=== PATIENT | female | born 1970 | race Caucasian/White ===

== ENCOUNTER → 2018-03-18 | Outpatient (CLI) | payer OTHER ==
--- NOTE | 2018-03-18 13:02 | US ---
EXAMINATION TYPE: US thyroid st tissue head/neck DATE OF EXAM: 03/18/2018 COMPARISON: EXAMINATION TYPE: US soft tissue head/neck DATE OF EXAM: 03/18/2018 COMPARISON: NONE CLINICAL HISTORY: R59.0 ENLARGED LYMPH NODES. Patient stated was bitten by dog tick 3 weeks ago and h as palpable areas: 2 at posterior and lateral head in hair and another at inferior right lateral neck . Right posterior and lateral head and neck US at palpables: Two hypoechoic nodules are seen at palpabl es within posterior hair area with larger lymph node palpable = 1.0 x 1.0 x 0.6cm. Right lateral neck at palpable: Couple of hypoechoic lymph node appearing nodules are also seen with larger node = 1.4 x 0.9 x 0.5cm. Technologist harvey 2 oval well-defined hypoechoic lesions felt to reflect prominent but benign-appear ing lymph nodes presumed reactive or postinflammatory given patient history. No well-formed fluid col lection is seen. IMPRESSION: As above
--- NOTE | 2018-03-18 13:12 | US ---
EXAMINATION TYPE: US abdomen complete DATE OF EXAM: 03/18/2018 COMPARISON: NONE CLINICAL HISTORY: R10.9 Abdominal Pain. Left lateral abdominal pain; hematuria EXAM MEASUREMENTS: Liver Length: 18.0 cm Gallbladder Wall: 0.1 cm CBD: 0.4 cm Spleen: 9.3 cm Right Kidney: 10.6 x 5.4 x 3.8 cm Left Kidney: 10.5 x 5.3 x 5.8 cm Pancreas: wnl Liver: wnl; possible Lizzy's Lobe as liver extends inferiorly past right kidney Gallbladder: hyperechoic, nonmobile, oval focus (probable polyp) noted on anterior gallbladder and s ize = 0.3 x 0.4 x 0.4cm. Evidence for sonographic Acosta's sign: no CBD: wnl Spleen: wnl Right Kidney: No hydronephrosis or masses seen Left Kidney: No hydronephrosis or masses seen Upper IVC: wnl Abd Aorta: wnl Peristalsing bowel is noted at Left lateral abdomen at patient's area of pain The visualized liver is homogenous. The intrahepatic portion of the IVC and proximal abdominal aorta are within normal limits. There is no evidence of cholelithiasis. Common bile duct is unremarkable . The visualized portions of the pancreas are homogenous. The spleen is unremarkable. Kidneys are symmetric and free of hydronephrosis. No renal lesions are seen. IMPRESSION: No suspicious finding is seen to account for patient's symptoms. If symptoms persist cons ider further investigation with CT scan.
== END | disposition home or self-care (01) ==
LOC: RADUSWWP 10:59
PROVIDERS: ATTEND Family Medicine
DX: R10.9 Unspecified abdominal pain (principal); R59.0 Localized enlarged lymph nodes
CPT/HCPCS: 76536; 76700